=== PATIENT | female | born 1960 | race African-American/Black ===

== ENCOUNTER 2017-07-17 10:49 | Emergency (ER) | payer MEDICAID, OTHER ==
[~2017-07-17] VITALS: Ht 162.6 cm; Wt 70.0 kg
[2017-07-17] MEDS ORDERED: NAPR-681 (10:57)
[2017-07-17] MEDS ORDERED: BO1 (10:57)
[2017-07-17] MEDS ORDERED: CARI350T27 (10:57)
[2017-07-17] MEDS ORDERED: ACETAMINOPHEN-COD (10:57)
[2017-07-17] MEDS ORDERED: TEMA30CA (10:57)
[2017-07-17] MEDS ORDERED: FERR324T4 (10:57)
[2017-07-17] MEDS ORDERED: SULF1TAB44 (10:57)
[2017-07-17 11:51] LABS: BASOPHILS % 0.5 % (0.0-2.0); EOSINOPHILS % 0.2 % (0.0-5.0); HEMATOCRIT. 36.7 % (36.0-48.0); HEMOGLOBIN. 12.3 g/dL (12.0-16.0); LYMPHOCYTES % 14.5 % (20.0-50.0); MEAN CORPUSCULAR HEMOGLOBIN 32.8 pg (28.0-32.0); MONOCYTES % 2.8 % (2.0-8.0); PLATELET 341 x1000/uL (130-400); RED BLOOD CELL COUNT 3.74 mill/uL (4.2-5.4); RED CELL DISTRIBUTION WIDTH 13.4 % (11.6-14.6)
[2017-07-17 11:58] LABS: INR 1.1; PARTIAL THROMBOPLASTIN TIME 23.6 sec (23.4-31.0)
[2017-07-17 12:10] LABS: CARBON DIOXIDE 26 mEq/L (21-32); CHLORIDE 96 mEq/L (98-107); CREATINE KINASE 51 IU/L (26-192); CREATINE KINASE MB FRACTION 0.5 ng/mL (0.5-3.6); TROPONIN I < 0.02 ng/mL (0.00-0.04)
[2017-07-17] MEDS ORDERED: ONDANSETRON HCL 4MG/2ML VIAL IV ONE (12:30)
[2017-07-17] MEDS ORDERED: MORPHINE SULFATE 10 MG/ML CPJ IV ONE (12:30)
[2017-07-17] MEDS ORDERED: IOHEXOL-300 100 ML BOTTLE ONE (13:53)
[2017-07-17 16:33] VITALS: BP 132/87
== END 2017-07-17 16:43 | disposition home or self-care (01) ==
LOC: ER 11:03
DX: K13.79 Other lesions of oral mucosa (principal); G89.29 Other chronic pain; E87.8 Other disorders of electrolyte and fluid balance, not elsewhere classified; C06.9 Malignant neoplasm of mouth, unspecified; Z85.3 Personal history of malignant neoplasm of breast; F17.210 Nicotine dependence, cigarettes, uncomplicated; Z90.13 Acquired absence of bilateral breasts and nipples
CPT/HCPCS: 36415; 70450; 70487; 70491; 71010; 80053; 82550; 82553; 83690; 83880; 84443; 84484; 85025; 85610; 85730; 93005; 96374; 96375; 99285; J2270; J2405; J7030; Q9967; Z7610

== ENCOUNTER 2017-07-18 16:05 | Emergency (ER) | payer MEDICAID, OTHER ==
[~2017-07-18] VITALS: Ht 162.6 cm; Wt 65.0 kg
[~2017-07-18 16:05] MED LIST: ACETAMINOPHEN-COD; BO1; CARI350T27; FERR324T4; NAPR-681; SULF1TAB44; TEMA30CA
[2017-07-18] MEDS ORDERED: MORPHINE SULFATE 4 MG/ML CPJ (NOT FOR IM USE) IV STA (20:44)
[2017-07-18] MEDS ORDERED: SODIUM CHLORIDE 0.9% 1,000 ML IV ONE (20:44)
[2017-07-18] MEDS ORDERED: ONDANSETRON HCL 4MG/2ML VIAL IV STA (20:44)
[2017-07-18] MEDS ORDERED: LORAZEPAM 2MG/ML CPJ IV ONE (20:45)
[2017-07-18 21:12] LABS: BASOPHILS % 0.4 % (0.0-2.0); EOSINOPHILS % 0.2 % (0.0-5.0); HEMATOCRIT. 37.4 % (36.0-48.0); HEMOGLOBIN. 12.4 g/dL (12.0-16.0); LYMPHOCYTES % 25.2 % (20.0-50.0); MEAN CORPUSCULAR HEMOGLOBIN 32.6 pg (28.0-32.0); MEAN CORPUSCULAR VOLUME 97.9 fL (81.0-99.0); MEAN PLATELET VOLUME 6.7 fl (7.4-10.4); MONOCYTES % 7.4 % (2.0-8.0); NEUTROPHILS % 66.8 % (40.0-76.0); PLATELET 354 x1000/uL (130-400); RED BLOOD CELL COUNT 3.82 mill/uL (4.2-5.4); RED CELL DISTRIBUTION WIDTH 13.4 % (11.6-14.6)
[2017-07-18 21:21] LABS: CARBON DIOXIDE 29 mEq/L (21-32); CHLORIDE 97 mEq/L (98-107)
[2017-07-18 21:28] LABS: TROPONIN I < 0.02 ng/mL (0.00-0.04)
[2017-07-18 23:19] VITALS: BP 120/79
== END 2017-07-18 22:51 | disposition home or self-care (01) ==
LOC: ER 16:24
DX: R00.0 Tachycardia, unspecified (principal); E11.9 Type 2 diabetes mellitus without complications; Z87.891 Personal history of nicotine dependence; Z85.818 Personal history of malignant neoplasm of other sites of lip, oral cavity, and pharynx
CPT/HCPCS: 36415; 71010; 80048; 84484; 85025; 93005; 96361; 96374; 96375; 99285; C1893; J2060; J2405; J7030; Z7610